=== PATIENT | female | born 1985 | race Caucasian/White ===

== ENCOUNTER 2017-04-05 15:04 | Inpatient (IN) | payer BC ==
[2017-04-05] MEDS ORDERED: Ondansetron 4 MG/2 ML SDV IVPUSH PRN ×2 (15:23→20:07)
[2017-04-05] MEDS ORDERED: Sodium Chloride 0.9% 10 ML Syringe FLUSH PRN (15:23)
[2017-04-05] MEDS ORDERED: Nalbuphine 20 MG/1 ML Amp IVPUSH PRN (15:23)
--- NOTE | 2017-04-05 15:29 | PCM.LDHP ---
L&D History of Present Illness - General Date of Service: 04/05/17 Admit Problem/Dx: Patient Status Order with Admit Dx/Problem 04/05/17 15:24 Patient Status [ADT] Routine Admission Diagnosis/Problem Admission Diagnosis/Problem Normal Source of Information: Patient History Limitations: Reports: No Limitations - History of Present Illness Introduction:: Patient is a 31 y/o at 37 2/7 wks who presents to L&D for delivery. Was seen in clinic today for routine appointment and described intense itching of her hands and feet which have been present for the last 3-4 days. Due to gestational age and delay in having bile acid testing return she was advised to present to L&D for delivery. Otherwise doing well. No other concerns. - Related Data Allergies/Adverse Reactions: Allergies Allergy/AdvReac Type Severity Reaction Status Date / Time amoxicillin Allergy Hives Verified 04/05/17 16:17 Penicillins Allergy Hives Verified 04/05/17 16:17 Home Medications: Home Meds Ondansetron [Zofran] 1 mg PO ASDIRECTED PRN 04/05/17 [History] Sertraline [Zoloft] 50 mg PO DAILY 04/05/17 [History] Past Medical History Genitourinary History: Reports: Other (See Below) (Horse shoe ) [employer] History: Reports: , Spontaneous : 5 Para: 3 (2 living children) LMP (Approximate): - Past Surgical History HEENT Surgical History: Reports: Adenoidectomy, Tonsillectomy Other HEENT Surgeries/Procedures: ear drums repaired due to having holes from the tubes Social & Family History - Family History Family Medical History: Noncontributory - Tobacco Use Smoking Status *Q: Former Smoker Years of Tobacco use: 10 Packs/Tins Daily: 0.5 Used Tobacco, but Quit: Yes Month Tobacco Last Used: Dec Second Hand Smoke Exposure: No - Alcohol Use Alcohol Use History: No Days Per Week of Alcohol Use: 0 - Recreational Drug Use Recreational Drug Use: No H&P Review of Systems - Review of Systems: Review Of Systems: See Below General: Reports: No Symptoms Pulmonary: Reports: No Symptoms Cardiovascular: Reports: No Symptoms Gastrointestinal: Reports: No Symptoms Genitourinary: Reports: No Symptoms Musculoskeletal: Reports: No Symptoms Neurological: Reports: No Symptoms L&D Exam - Exam Exam: See Below - OB Specific Contraction Intensity: Mild to Moderate Movement: Active Heart Tones: Present Heart Rate (FHR) Variability: Moderate (6-25 bmp) Presentation: Breech - House Score House Score Cervix Position: Posterior House Score Consistency: Soft House Score Effacement: 31-50% House Score Dilation: 1-2 cm House Score Infant's Station: -3 House Score Total: 4 - Exam General: Alert, Oriented, Cooperative Lungs: Clear to Auscultation, Normal Respiratory Effort Cardiovascular: Regular Rate, Regular Rhythm GI/Abdominal Exam: Soft, Non-Tender Genitourinary: Normal external exam Extremities: Normal Inspection Skin: Warm, Dry, Intact - Patient Data Result Diagrams: 04/05/17 15:35 04/05/17 15:35 - Problem List (1) Bicornate uterus SNOMED Code(s): 18047715 ICD Code: Q51.3 - BICORNATE UTERUS Status: Acute Current Visit: Yes (2) Pruritus of palm SNOMED Code(s): 032441563 ICD Code: L29.8 - OTHER PRURITUS Status: Acute Current Visit: Yes (3) Solar pruritus SNOMED Code(s): 098898021 ICD Code: L29.9 - PRURITUS, UNSPECIFIED Status: Acute Current Visit: Yes (4) 37 weeks gestation of SNOMED Code(s): 43993554 ICD Code: Z3A.37 - 37 WEEKS GESTATION OF Status: Acute Current Visit: Yes (5) Breech presentation SNOMED Code(s): 4071031 ICD Code: O32.1XX0 - MATERNAL CARE FOR BREECH PRESENTATION, UNSP Status: Acute Current Visit: Yes Qualifiers: Fetus number: single or unspecified fetus Qualified Code(s): O32.1XX0 - Maternal care for breech presentation, not applicable or unspecified Problem List Initiated/Reviewed/Updated: Yes Orders Last 24hrs: Active Orders 24 hr Category Date Time Status Patient Status [ADT] Routine ADT 04/05/17 15:24 Ordered Activity as Tolerated [RC] PFP Care 04/05/17 15:24 Ordered Communication Order [RC] ASDIRECTED Care 04/05/17 15:24 Ordered Communication Order [RC] ASDIRECTED Care 04/05/17 15:24 Ordered Communication Order [RC] ASDIRECTED Care 04/05/17 15:24 Ordered Heart Tones [RC] ASDIRECTED Care 04/05/17 15:24 Ordered Notify Provider [RC] ASDIRECTED Care 04/05/17 15:24 Ordered Notify Provider [RC] PFP Care 04/05/17 15:24 Ordered Notify Provider [RC] PRN Care 04/05/17 15:24 Ordered Peripheral IV Care [RC] . DIRECTED Care 04/05/17 15:24 Ordered Vaginal Exam [RC] ASDIRECTED Care 04/05/17 15:24 Ordered Vital Signs [RC] PER UNIT ROUTINE Care 04/05/17 15:24 Ordered Regular Diet [DIET] Diet 04/05/17 Dinner Ordered ALANINE AMINOTRANSFERASE,ALT [CHEM] Routine Lab 04/05/17 15:23 Ordered ASPARTATE AMNIOTRANSFERASE,AST [CHEM] Routine Lab 04/05/17 15:23 Ordered BILE ACIDS, FRACTIONATED [REF] Routine Lab 04/05/17 15:23 Ordered CBC W/O DIFF,HEMOGRAM [HEME] Routine Lab 04/05/17 15:23 Ordered CREATININE W/GFR [CHEM] Routine Lab 04/05/17 15:23 Ordered TYPE AND SCREEN [BBK] Routine Lab 04/05/17 15:23 Ordered UA W/O MICROSCOPIC [URIN] Routine Lab 04/05/17 15:23 Uncollected Lactated Ringers [Ringers, Lactated] 1,000 ml Med 04/05/17 15:30 Ordered IV ASDIRECTED Nalbuphine [Nubain] Med 04/05/17 15:23 Ordered 10 mg IVPUSH Q2H PRN Ondansetron [Zofran] Med 04/05/17 15:23 Ordered 4 mg IVPUSH Q4H PRN Oxytocin/Lactated Ringers [Pitocin in LR 10 Units/1,000 Med 04/05/17 15:30 Ordered ML] 10 unit in 1,000 ml IV .CONTINUOUS Oxytocin/Lactated Ringers [Pitocin in LR 10 Units/1,000 Med 04/05/17 15:30 Ordered ML] 10 unit in 1,000 ml IV TITRATE Sodium Chloride 0.9% [Saline Flush] Med 04/05/17 15:23 Ordered 10 ml FLUSH ASDIRECTED PRN Electronic Heart Tones Ext w TOCO [WOMSER] Oth 04/05/17 15:24 Ordered Routine Electronic Heart Tones Internal [WOMSER] Per Unit Oth 04/05/17 15:24 Ordered Routine Peripheral IV Insertion Adult [OM.PC] Routine Oth 04/05/17 15:24 Ordered Resuscitation Status Routine Resus Stat 04/05/17 15:23 Ordered Medication Orders Lactated Ringer's (Ringers, Lactated) 1,000 mls @ 40 mls/hr IV ASDIRECTED KEVYN Oxytocin/Lactated Ringer's (Pitocin In Lr 10 Units/1,000 Ml) 10 unit in 1,000 mls @ 500 mls/hr IV .CONTINUOUS KEVYN Oxytocin/Lactated Ringer's (Pitocin In Lr 10 Units/1,000 Ml) 10 unit in 1,000 mls @ 12 mls/hr IV TITRATE KEVYN; 2 MUNITS/MIN PRN Reason: Protocol Nalbuphine HCl (Nubain) 10 mg IVPUSH Q2H PRN PRN Reason: Pain (moderate 4-6) Ondansetron HCl (Zofran) 4 mg IVPUSH Q4H PRN PRN Reason: Nausea/Vomiting Sodium Chloride (Saline Flush) 10 ml FLUSH ASDIRECTED PRN PRN Reason: Keep Vein Open Assessment/Plan Comment:: 31 y/o at 37 2/7 wks presents for due to concerns for possible cholestasis of given complaints of itching of the hands/feet. Will order bile acids, but they take >7 days to return. Feel it is prudent to move on to delivery in the mean time due to risk of IUFD. She agrees. She also had a mild range BP in clinic. Has had several mild range values in L&D as well. Labs done and normal. Likely gestational HTN. Will continue to monitor closely afterwards. Lastly, baby found to be breech. Discussed trial of ECV which is not thought to likely be successful given bicornuate, but patient would like trial. Done, see report below, but without movement of baby. She is willing to proceed with PLTCS. Consent signed. OR crew and pediatrics notified. Jennifer Mendoza MD ECV Trial: The risks, benefits, indications, potential complications, and alternatives were explained to the patient and informed consent obtained. Patient was placed in the supine position. Ultrasound was used to confirm breech presentation and appropriate [place]. Hands were placed on the patient's abdomen. The breech was elevated out of the pelvis while clockwise traction was applied to the head. Due to patient discomfort and no movement of baby attempt at ECV abandoned after approximately 3 tries.
[2017-04-05] MEDS ORDERED: Oxytocin/Lactated Ringers 10 UNIT/1,000 ML BAG IV SCH ×2 (15:30)
[2017-04-05] MEDS ORDERED: Metoclopramide 10 MG/2 ML SDV IVPUSH ONE (17:26)
[2017-04-05] MEDS ORDERED: ceFAZolin 2 GM in Premix Bag 1 BAG IV ONE (17:26)
[2017-04-05] MEDS ORDERED: Citric Acid/Sodium Citrate Solution 30 ML Cup PO ONE (17:26)
--- NOTE | 2017-04-05 17:44 | PCM.OPNOTE ---
- General Post-Op/Procedure Note Date of Surgery/Procedure: 04/05/17 Operative Procedure(s): Primary low transverse Findings: * Baby girl in a breech presentation with weight of 7 lbs 3 oz and APGARS of 1 & 9 * Grossly normal appearance of the uterus, not able to appreciate any changes to suggest bicornuate morphology as patient had previously been told * Normal appearance of the fallopian tubes and ovaries Pre Op Diagnosis: 37 weeks gestation. Gestational HTN. Itching of hands/feet - concerns for cholestasis of , labs pending. Breech presentation Post-Op Diagnosis: Same Anesthesia Technique: Spinal Primary Surgeon: Jennifer Mendoza Secondary Surgeon: Sunitha Bell Anesthesia Provider: Ld Hollingsworth Reason Concession Cashier Was Necessary: Retraction, aid in procedure, etc. Pathology: Cord blood collected. Placenta discarded. Output, Urine Amount: 100 EBL in mLs: 800 Complications: None Condition: Good Free Text/Narrative:: The risks, benefits, indications, potential complications, and alternatives were explained to the patient and informed consent obtained. After induction of anesthesia, the patient was placed in a supine position and then draped and prepped in the usual sterile manner. A Pfannenstiel incision was made and carried down through the subcutaneous tissue to the fascia. Fascial incision was made and extended transversely. The fascia was from the underlying rectus tissue superiorly and inferiorly. The peritoneum was identified and entered. Peritoneal incision was extended longitudinally. The utero-vesical peritoneal reflection was incised transversely and the bladder flap was bluntly freed from the lower uterine segment. A low transverse uterine incision was made sharply with a scalpel and extended bluntly in a cephalocaudad direction. When a hand was placed into the uterus the breech was not easily encountered, was off center and not engaged. Decision made to proceed with delivery of feet. This was difficult as feet were at same level as head. Eventually both feet were able to be brought through the hysterotomy and a baby girl was delivered with traditional breech maneuvers. APGARS as above. After the umbilical cord was clamped and cut cord blood was obtained for evaluation. The placenta was removed intact and appeared normal. The uterus was exteriorized and cleared of clots. The uterine outline, tubes and ovaries appeared normal. The uterine incision was closed with running locked sutures of 0 Vicryl. Hemostasis was obtained with an imbicating layer of 0 vicryl. The uterus was then placed back into the abdomen. The infracolic gutters were cleared of blood clots. The fascia was then reapproximated with running sutures of 0 Vicryl. The sucutaneous tissue was irrigated with sterile warm normal saline, hemostasis obtained with cautery. This layer was also closed with a running 0 vicryl. The skin was reapproximated with running Subcuticular 4-0 monocryl sutures. Instrument, sponge, and needle counts were correct prior the abdominal closure and at the conclusion of the case.
[2017-04-05] MEDS: Lactated Ringers 1,000 ML IV SCH ×2 (17:55→18:24)
--- NOTE | 2017-04-05 18:15 | PCM.PREANE ---
Preanesthetic Assessment - Procedure Proposed Procedure: Primary C Section - Anesthesia/Transfusion/Family Hx Anesthesia History: Prior Anesthesia Without Reaction Family History of Anesthesia Reaction: No Transfusion History: No Prior Transfusion(s) Intubation History: Unknown - Review of Systems General: No Symptoms Pulmonary: No Symptoms Cardiovascular: No Symptoms Gastrointestinal: No Symptoms Neurological: No Symptoms Other: Reports: Depression, Anxiety - Physical Assessment NPO Status Date: 04/05/17 NPO Status Time: 13:00 Pulse: 89 O2 Sat by Pulse Oximetry: 100 Respiratory Rate: 16 Blood Pressure: 139/92 Vital Signs: Last Vital Signs Temp 36.6 C 04/05/17 15:24 Pulse 89 04/05/17 16:00 Resp 16 04/05/17 15:24 BP 139/92 H 04/05/17 16:00 Pulse Ox 100 04/05/17 15:24 Height: 1.57 m Weight: 88.269 kg ASA Class: 2 Mental Status: Alert & Oriented x3 Airway Class: Mallampati = 1 Dentition: Reports: Missing Tooth/Teeth (upper left tooth missing, bottom right molar missing ) Thyro-Mental Finger Breadths: 3 Mouth Opening Finger Breadths: 3 ROM/Head Extension: Full Lungs: Clear to Auscultation, Normal Respiratory Effort Cardiovascular: Regular Rate, Regular Rhythm - Lab Values: Laboratory Last Values WBC 9.95 K/mm3 (3.98-10.04) 04/05/17 15:35 RBC 4.31 M/mm3 (3.98-5.22) 04/05/17 15:35 Hgb 12.6 gm/L (11.2-15.7) 04/05/17 15:35 Hct 38.0 % (34.1-44.9) 04/05/17 15:35 MCV 88.2 fl (79.4-94.8) 04/05/17 15:35 MCH 29.2 pg (25.6-32.2) 04/05/17 15:35 MCHC 33.2 g/dl (32.2-35.5) 04/05/17 15:35 RDW Std Deviation 41.5 fL (36.4-46.3) 04/05/17 15:35 Plt Count 354 K/mm3 (182-369) 04/05/17 15:35 MPV 9.1 fl (9.4-12.3) L 04/05/17 15:35 Creatinine 0.9 mg/dL (0.55-1.02) 04/05/17 15:35 Est Cr Clr Drug Dosing TNP 04/05/17 15:35 Estimated GFR (MDRD) > 60 mL/min (>60) 04/05/17 15:35 AST 34 U/L (15-37) 04/05/17 15:35 ALT 42 U/L (14-59) 04/05/17 15:35 Blood Type O POSITIVE 04/05/17 15:35 Gel Antibody Screen Negative 04/05/17 15:35 - Allergies Allergies/Adverse Reactions: Allergies Allergy/AdvReac Type Severity Reaction Status Date / Time amoxicillin Allergy Hives Verified 04/05/17 16:17 Penicillins Allergy Hives Verified 04/05/17 16:17 - Blood Blood Available: No Product(s) Available: None - Anesthesia Plan Pre-Op Medication Ordered: None - Acknowledgements Anesthesia Type Planned: Spinal (with duramorph) Pt an Appropriate Candidate for the Planned Anesthesia: Yes Alternatives and Risks of Anesthesia Discussed w Pt/Guardian: Yes Pt/Guardian Understands and Agrees with Anesthesia Plan: Yes PreAnesthesia Questionnaire - Past Health History Medical/Surgical History: Denies Medical/Surgical History Genitourinary History: Reports: Other (See Below) (Horse shoe ) Other Genitourinary History: "fused kidneys" 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: , Spontaneous Psychiatric History: Reports: Depression - Past Surgical History HEENT Surgical History: Reports: Adenoidectomy, Tonsillectomy Other HEENT Surgeries/Procedures: ear drums repaired due to having holes from the tubes - SUBSTANCE USE Smoking Status *Q: Former Smoker Tobacco Use Within Last Twelve Months: No Second Hand Smoke Exposure: No Days Per Week of Alcohol Use: 0 Recreational Drug Use History: No - HOME MEDS Home Medications: Home Meds Ondansetron [Zofran] 1 mg PO ASDIRECTED PRN 04/05/17 [History] Sertraline [Zoloft] 50 mg PO DAILY 04/05/17 [History] - CURRENT (IN HOUSE) MEDS Current Meds: Current Medications Lactated Ringer's (Ringers, Lactated) 1,000 mls @ 40 mls/hr IV ASDIRECTED KEVYN Oxytocin/Lactated Ringer's (Pitocin In Lr 10 Units/1,000 Ml) 10 unit in 1,000 mls @ 500 mls/hr IV .CONTINUOUS KEVYN Oxytocin/Lactated Ringer's (Pitocin In Lr 10 Units/1,000 Ml) 10 unit in 1,000 mls @ 12 mls/hr IV TITRATE KEVYN; 2 MUNITS/MIN PRN Reason: Protocol Nalbuphine HCl (Nubain) 10 mg IVPUSH Q2H PRN PRN Reason: Pain (moderate 4-6) Ondansetron HCl (Zofran) 4 mg IVPUSH Q4H PRN PRN Reason: Nausea/Vomiting Sodium Chloride (Saline Flush) 10 ml FLUSH ASDIRECTED PRN PRN Reason: Keep Vein Open Discontinued Medications Citric Acid/Sodium Citrate (Bicitra Solution) 30 ml PO ONETIME ONE Stop: 04/05/17 17:27 Cefazolin Sodium/Dextrose 2 gm (/ Premix) 50 mls @ 100 mls/hr IV ONETIME ONE Stop: 04/05/17 17:55 Metoclopramide HCl (Reglan) 10 mg IVPUSH ONETIME ONE Stop: 04/05/17 17:27
[2017-04-05] MEDS ORDERED: Morphine PF 10 MG/10 ML SDV ONE (18:51)
[2017-04-05] MEDS ORDERED: ceFAZolin 1 GM Vial ONE (18:52)
[2017-04-05] MEDS ORDERED: Oxytocin 10 Units/1 ML SDV ONE (18:52)
[2017-04-05] MEDS ORDERED: Ketorolac 30 MG/ML SDV ONE (18:56)
[2017-04-05] MEDS ORDERED: Ondansetron 4 MG/2 ML SDV ONE (19:55)
[2017-04-05] MEDS ORDERED: Phenylephrine 1% 10 MG/ML SDV ONE (19:55)
[2017-04-05] MEDS ORDERED: Meperidine PF 50 MG/ML Syringe ONE (19:58)
--- NOTE | 2017-04-05 20:06 | PCM.POSTAN ---
POST ANESTHESIA ASSESSMENT - MENTAL STATUS Mental Status: Alert, Oriented - VITAL SIGNS Pulse Rate: 86 SaO2: 99 Resp Rate: 14 Blood Pressure: 102/67 Temperature: 37.5 C - RESPIRATORY Respiratory Status: Respiratory Rate WNL, Airway Patent, O2 Saturation Stable - CARDIOVASCULAR CV Status: Pulse Rate WNL, Blood Pressure Stable - GASTROINTESTINAL GI Status: No Symptoms - PAIN Pain Score: 0 - POST OP HYDRATION Hydration Status: Adequate & Stable
[2017-04-05] MEDS ORDERED: Meperidine PF 50 MG/ML Syringe IVPUSH PRN (20:07)
[2017-04-05] MEDS ORDERED: fentaNYL 100 MCG/2 ML SDV IVPUSH PRN (20:07)
[2017-04-05] MEDS ORDERED: diphenhydrAMINE 50 MG/ML SDV IVPUSH PRN ×2 (20:07→20:50)
[2017-04-05] MEDS ORDERED: Ondansetron 4 MG/2 ML SDV IV PRN (20:50)
[2017-04-05] MEDS ORDERED: Ibuprofen 600 MG Tab PO PRN (20:50)
[2017-04-05] MEDS ORDERED: Dextrose 5%-Lactated Ringers 1,000 ML IV SCH (20:50)
[2017-04-05] MEDS ORDERED: Lanolin 100% Cream 7 GM Tube TOP PRN (20:50)
[2017-04-05] MEDS ORDERED: Docusate Sodium 100 MG Cap PO PRN (20:50)
[2017-04-05] MEDS: Acetaminophen/oxyCODONE 325-5 MG Tab PO PRN (23:31)
[2017-04-06] MEDS: Ketorolac 30 MG/ML SDV IVPUSH SCH ×3 (01:34→13:40)
[2017-04-06] MEDS ORDERED: diphenhydrAMINE 50 MG/ML SDV IVPUSH ONE (03:26)
--- NOTE | 2017-04-06 07:01 | PCM.PNPP ---
- General Info Date of Service: 04/06/17 Functional Status: Reports: Pain Controlled, Tolerating Diet, Ambulating - Review of Systems General: Reports: No Symptoms Pulmonary: Reports: No Symptoms Cardiovascular: Reports: No Symptoms Gastrointestinal: Reports: No Symptoms Genitourinary: Reports: No Symptoms Musculoskeletal: Reports: No Symptoms - Patient Data Vital Signs - Most Recent: Last Vital Signs Temp 36.4 C 04/06/17 04:59 Pulse 82 04/06/17 04:59 Resp 16 04/06/17 04:59 BP 115/60 04/06/17 04:59 Pulse Ox 99 04/06/17 06:00 Weight - Most Recent: 88.269 kg I&O - Last 24 Hours: Intake & Output 04/05/17 04/06/17 04/06/17 22:59 06:59 14:59 Intake Total 3000 Output Total 200 Balance 2800 Lab Results - Last 24 Hours: Laboratory Results - last 24 hr 04/05/17 04/05/17 04/05/17 Range/Units 15:35 15:35 15:35 WBC 9.95 (3.98-10.04) K/mm3 RBC 4.31 (3.98-5.22) M/mm3 Hgb 12.6 (11.2-15.7) gm/L Hct 38.0 (34.1-44.9) % MCV 88.2 (79.4-94.8) fl MCH 29.2 (25.6-32.2) pg MCHC 33.2 (32.2-35.5) g/dl RDW Std Deviation 41.5 (36.4-46.3) fL Plt Count 354 (182-369) K/mm3 MPV 9.1 L (9.4-12.3) fl Creatinine 0.9 (0.55-1.02) mg/dL Est Cr Clr Drug Dosing TNP Estimated GFR (MDRD) > 60 (>60) mL/min AST 34 (15-37) U/L ALT 42 (14-59) U/L Blood Type O POSITIVE Gel Antibody Screen Negative 04/06/17 Range/Units 06:10 WBC 10.18 H (3.98-10.04) K/mm3 RBC 3.15 L (3.98-5.22) M/mm3 Hgb 9.2 L (11.2-15.7) gm/L Hct 28.4 L (34.1-44.9) % MCV 90.2 (79.4-94.8) fl MCH 29.2 (25.6-32.2) pg MCHC 32.4 (32.2-35.5) g/dl RDW Std Deviation 41.0 (36.4-46.3) fL Plt Count 277 (182-369) K/mm3 MPV 9.3 L (9.4-12.3) fl Creatinine (0.55-1.02) mg/dL Est Cr Clr Drug Dosing Estimated GFR (MDRD) (>60) mL/min AST (15-37) U/L ALT (14-59) U/L Blood Type Gel Antibody Screen Med Orders - Current: Current Medications Diphenhydramine HCl (Benadryl) 25 mg IVPUSH Q6H PRN PRN Reason: Pruritis Last Admin: 04/06/17 02:08 Dose: 25 mg Diphenhydramine HCl (Benadryl) 25 mg IVPUSH Q6H PRN PRN Reason: Itching or Nausea Docusate Sodium (Colace) 100 mg PO Q12H PRN PRN Reason: Constipation Emollient Ointment (Lansinoh Hpa) 0 gm TOP ASDIRECTED PRN PRN Reason: Sore Nipples Fentanyl (Sublimaze) 50 mcg IVPUSH Q5M PRN PRN Reason: Pain Ibuprofen (Motrin) 600 mg PO Q6H PRN PRN Reason: mild pain or fever Ketorolac Tromethamine (Toradol) 30 mg IVPUSH Q6H KEVYN Stop: 04/06/17 13:46 Last Admin: 04/06/17 01:34 Dose: 30 mg Meperidine HCl (Demerol) 12.5 mg IVPUSH ONETIME PRN PRN Reason: Shivering Ondansetron HCl (Zofran) 4 mg IVPUSH ONETIME PRN PRN Reason: Nausea/Vomiting Ondansetron HCl (Zofran) 4 mg IV Q8H PRN PRN Reason: Nausea/Vomiting Oxycodone/Acetaminophen (Percocet 325-5 Mg) 2 tab PO Q4H PRN PRN Reason: Pain (moderate 4-6) Last Admin: 04/05/17 23:31 Dose: 2 tab Sertraline HCl (Zoloft) 50 mg PO DAILY KEVYN Discontinued Medications Cefazolin Sodium (Ancef) Confirm Administered Dose 2 gm .ROUTE .STK-MED ONE Stop: 04/05/17 18:53 Citric Acid/Sodium Citrate (Bicitra Solution) 30 ml PO ONETIME ONE Stop: 04/05/17 17:27 Last Admin: 04/05/17 18:26 Dose: 30 ml Diphenhydramine HCl (Benadryl) 25 mg IVPUSH ONETIME ONE Stop: 04/06/17 03:27 Last Admin: 04/06/17 03:54 Dose: 25 mg Lactated Ringer's (Ringers, Lactated) 1,000 mls @ 40 mls/hr IV ASDIRECTED KEVYN Last Admin: 04/05/17 18:24 Dose: 999 mls/hr Oxytocin/Lactated Ringer's (Pitocin In Lr 10 Units/1,000 Ml) 10 unit in 1,000 mls @ 500 mls/hr IV .CONTINUOUS KEVYN Last Admin: 04/05/17 19:19 Dose: 500 mls/hr Oxytocin/Lactated Ringer's (Pitocin In Lr 10 Units/1,000 Ml) 10 unit in 1,000 mls @ 12 mls/hr IV TITRATE KEVYN; 2 MUNITS/MIN PRN Reason: Protocol Cefazolin Sodium/Dextrose 2 gm (/ Premix) 50 mls @ 100 mls/hr IV ONETIME ONE Stop: 04/05/17 17:55 Dextrose/Lactated Ringer's (Dextrose 5%-Lactated Ringers) 1,000 mls @ 125 mls/ hr IV ASDIRECTED KEVYN Stop: 04/06/17 04:49 Last Admin: 04/05/17 21:19 Dose: 125 mls/hr Ketorolac Tromethamine (Toradol) Confirm Administered Dose 30 mg .ROUTE .STK- MED ONE Stop: 04/05/17 18:57 Meperidine HCl (Demerol) Confirm Administered Dose 50 mg .ROUTE .STK-MED ONE Stop: 04/05/17 19:59 Metoclopramide HCl (Reglan) 10 mg IVPUSH ONETIME ONE Stop: 04/05/17 17:27 Last Admin: 04/05/17 18:25 Dose: 10 mg Morphine Sulfate (Duramorph Pf) Confirm Administered Dose 10 mg .ROUTE .STK-MED ONE Stop: 04/05/17 18:52 Nalbuphine HCl (Nubain) 10 mg IVPUSH Q2H PRN PRN Reason: Pain (moderate 4-6) Ondansetron HCl (Zofran) 4 mg IVPUSH Q4H PRN PRN Reason: Nausea/Vomiting Ondansetron HCl (Zofran) Confirm Administered Dose 4 mg .ROUTE .STK-MED ONE Stop: 04/05/17 19:56 Oxytocin (Pitocin) Confirm Administered Dose 10 unit .ROUTE .STK-MED ONE Stop: 04/05/17 18:53 Phenylephrine HCl (Panfilo-Synephrine) Confirm Administered Dose 10 mg .ROUTE .STK- MED ONE Stop: 04/05/17 19:56 Sodium Chloride (Saline Flush) 10 ml FLUSH ASDIRECTED PRN PRN Reason: Keep Vein Open - Infant Interaction Infant Disposition, : in Room with Family Interaction: Holding Infant Infant Feeding: Breastfed Infant; Nursed Well Support Person: - Recovery Exam Fundal Tone: Firm Fundal Level: At Umbilicus Fundal Placement: Midline Lochia Amount: Small Lochia Color: Rubra/Red Perineum Description: Intact, Minimal Bruising/Swelling Bladder Status: Indwelling Catheter in Place Urinary Elimination: Indwelling Catheter - Exam General: Alert, Oriented, Cooperative Lungs: Clear to Auscultation, Normal Respiratory Effort Cardiovascular: Regular Rate, Regular Rhythm GI/Abdominal Exam: Soft, Tender (appropriate post op) Extremities: Normal Inspection Skin: Warm, Dry, Intact Wound/Incisions: Dressing Dry and Intact - Problem List & Annotations (1) Bicornate uterus SNOMED Code(s): 80205521 Code(s): Q51.3 - BICORNATE UTERUS Status: Acute Current Visit: Yes (2) Pruritus of palm SNOMED Code(s): 510117785 Code(s): L29.8 - OTHER PRURITUS Status: Acute Current Visit: Yes (3) Solar pruritus SNOMED Code(s): 600365194 Code(s): L29.9 - PRURITUS, UNSPECIFIED Status: Acute Current Visit: Yes (4) 37 weeks gestation of SNOMED Code(s): 73805587 Code(s): Z3A.37 - 37 WEEKS GESTATION OF Status: Acute Current Visit: Yes (5) Breech presentation SNOMED Code(s): 9076011 Code(s): O32.1XX0 - MATERNAL CARE FOR BREECH PRESENTATION, UNSP Status: Acute Current Visit: Yes Qualifiers: Fetus number: single or unspecified fetus Qualified Code(s): O32.1XX0 - Maternal care for breech presentation, not applicable or unspecified (6) Gestational hypertension SNOMED Code(s): 21673377 Code(s): O13.9 - GESTATIONAL HTN W/O SIGNIFICANT PROTEINURIA, UNSP TRIMESTER Status: Acute Current Visit: Yes Qualifiers: Trimester: third trimester Qualified Code(s): O13.3 - Gestational [ -induced] hypertension without significant proteinuria, third trimester - Problem List Review Problem List Initiated/Reviewed/Updated: Yes - My Orders Last 24 Hours: My Active Orders 04/05/17 15:23 Resuscitation Status Routine 04/05/17 15:35 BILE ACIDS, FRACTIONATED [REF] Routine 04/05/17 20:50 Activity as Tolerated [RC] .Routine Antiembolic Devices [RC] .PRN Communication Order [RC] PER UNIT ROUTINE Intake and Output [RC] .PRN Notify Provider Intake and Out [RC] ASDIRECTED RT Incentive Spirometry [RC] Q2HWA Vital Signs [RC] 04,12,20 Acetaminophen/oxyCODONE [Percocet 325-5 MG] 2 tab PO Q4H PRN Docusate Sodium [Colace] 100 mg PO Q12H PRN Ibuprofen [Motrin] 600 mg PO Q6H PRN Lanolin [Lansinoh HPA] See Dose Instructions TOP ASDIRECTED PRN Ondansetron [Zofran] 4 mg IV Q8H PRN diphenhydrAMINE [Benadryl] 25 mg IVPUSH Q6H PRN Assess Lochia [WOMSER] Per Unit Routine Assess Uterine Involution [WOMSER] Per Unit Routine Breast Pump [WOMSER] Per Unit Routine Heat Therapy [OM.PC] Per Unit Routine Sequential Compression Device [OM.PC] Per Unit Routine 04/05/17 Breakfast Regular Diet [DIET] 04/06/17 01:45 Ketorolac [Toradol] 30 mg IVPUSH Q6H 04/06/17 09:00 Sertraline [Zoloft] 50 mg PO DAILY 04/06/17 20:06 Urinary Catheter Removal [RC] Per Unit Routine - Assessment Assessment:: 31 y/o G5 now [id number] POD#1 from PLTCS 37 2/ wks - Plan Plan:: Post op * Routine cares * BP's appropriate post op, continue to monitor * Await bile acids * Encourage breast feeding * Discharge home in 1-2 days
--- NOTE | 2017-04-06 07:10 | PCM48HPAN ---
Post Anesthesia Note - EVALUATION WITHIN 48HRS OF ANESTHETIC Vital Signs in Normal Range: Yes Patient Participated in Evaluation: Yes Respiratory Function Stable: Yes Airway Patent: Yes Cardiovascular Function Stable: Yes Hydration Status Stable: Yes Pain Control Satisfactory: Yes Nausea and Vomiting Control Satisfactory: Yes Mental Status Recovered: Yes - COMMENTS/OBSERVATIONS Free Text/Narrative:: Some pruitis noted from astromorph but resolved and improved with benadryl.
[2017-04-06] MEDS: Sertraline 50 MG Tab PO SCH (11:00)
[2017-04-06] MEDS: Acetaminophen/oxyCODONE 325-5 MG Tab PO PRN ×2 (16:14→20:35)
[2017-04-07] MEDS: Acetaminophen/oxyCODONE 325-5 MG Tab PO PRN ×4 (00:58→15:49)
--- NOTE | 2017-04-07 06:42 | PCM.DCSUM1 ---
Discharge Summary - Discharge Data Discharge Date: 04/07/17 Discharge Disposition: Home, Self-Care 01 Condition: Good - Discharge Diagnosis/Problem(s) (1) Bicornate uterus SNOMED Code(s): 58184949 ICD Code: Q51.3 - BICORNATE UTERUS Status: Acute Current Visit: Yes (2) Pruritus of palm SNOMED Code(s): 195662430 ICD Code: L29.8 - OTHER PRURITUS Status: Acute Current Visit: Yes (3) Solar pruritus SNOMED Code(s): 699493760 ICD Code: L29.9 - PRURITUS, UNSPECIFIED Status: Acute Current Visit: Yes (4) 37 weeks gestation of SNOMED Code(s): 42772003 ICD Code: Z3A.37 - 37 WEEKS GESTATION OF Status: Acute Current Visit: Yes (5) Breech presentation SNOMED Code(s): 9122678 ICD Code: O32.1XX0 - MATERNAL CARE FOR BREECH PRESENTATION, UNSP Status: Acute Current Visit: Yes Qualifiers: Fetus number: single or unspecified fetus Qualified Code(s): O32.1XX0 - Maternal care for breech presentation, not applicable or unspecified (6) Gestational hypertension SNOMED Code(s): 74649516 ICD Code: O13.9 - GESTATIONAL HTN W/O SIGNIFICANT PROTEINURIA, UNSP TRIMESTER Status: Acute Current Visit: Yes Qualifiers: Trimester: third trimester Qualified Code(s): O13.3 - Gestational [ -induced] hypertension without significant proteinuria, third trimester (7) S/P primary low transverse SNOMED Code(s): 697899202, 009417959, 042507290 ICD Code: Z98.891 - HISTORY OF UTERINE SCAR FROM PREVIOUS SURGERY Status: Acute Current Visit: Yes - Patient Summary/Data Operative Procedure(s) Performed: Primary low transverse Complications: None Consults: None Recommended Follow-up Testing/Procedures: Follow up in 1-2 weeks for incision check Hospital Course: 31 y/o at 37 2/7 wks presented to L&D from clinic for findings of elevated BP and also complaints of itching of hands/feet. Concerns were for gestational HTN and also possible cholestasis. Decision made to proceed towards delivery. Baby was, however, noted to be breech and so delivery was via PLTCS. See operative note for full details. she did well and was discharged home on POD#2. - Patient Instructions Diet: Regular Diet as Tolerated Activity: No Lifting Over 10 Pounds Activity, Other: Pelvic Rest for 6 weeks Driving: Do Not Drive (While taking narcotics ) Showering/Bathing: May Shower, No Tub Bathing/Swimming Wound/Incision Care: Keep Operative Site/Wound Site Clean and Dry Notify Provider of: Fever, Increased Pain, Swelling and Redness, Drainage, Nausea and/or Vomiting - Discharge Plan Prescriptions/Med Rec: Acetaminophen/oxyCODONE [Percocet 325-5 MG] 2 tab PO Q4H PRN #30 tablet PRN Reason: Pain Home Medications: Home Meds Sertraline [Zoloft] 50 mg PO DAILY 04/05/17 [History] Acetaminophen/oxyCODONE [Percocet 325-5 MG] 2 tab PO Q4H PRN #30 tablet [Rx] Docusate Sodium [Colace] 100 mg PO Q12H PRN cap 04/06/17 [Rx] Ibuprofen [IJD: Ibuprofen] 600 mg PO Q6H PRN tablet 04/06/17 [Rx] Referrals: Jennifer Mendoza MD [Primary Care Provider] - (1-2 weeks for incision check ) - Discharge Summary/Plan Comment DC Time >30 min.: No - Patient Data Vitals - Most Recent: Last Vital Signs Temp 36.0 C 04/07/17 03:47 Pulse 99 04/06/17 20:20 Resp 16 04/07/17 03:47 BP 110/72 04/07/17 03:28 Pulse Ox 95 04/06/17 20:20 Weight - Most Recent: 88.269 kg I&O - Last 24 hours: Intake & Output 04/06/17 04/06/17 04/07/17 14:59 22:59 06:59 Intake Total 0 120 Output Total 1750 Balance -1750 120 Lab Results - Last 24 hrs: Laboratory Results - last 24 hr 04/06/17 Range/Units 06:10 WBC 10.18 H (3.98-10.04) K/mm3 RBC 3.15 L (3.98-5.22) M/mm3 Hgb 9.2 L (11.2-15.7) gm/L Hct 28.4 L (34.1-44.9) % MCV 90.2 (79.4-94.8) fl MCH 29.2 (25.6-32.2) pg MCHC 32.4 (32.2-35.5) g/dl RDW Std Deviation 41.0 (36.4-46.3) fL Plt Count 277 (182-369) K/mm3 MPV 9.3 L (9.4-12.3) fl Med Orders - Current: Current Medications Diphenhydramine HCl (Benadryl) 25 mg IVPUSH Q6H PRN PRN Reason: Pruritis Last Admin: 04/06/17 02:08 Dose: 25 mg Diphenhydramine HCl (Benadryl) 25 mg IVPUSH Q6H PRN PRN Reason: Itching or Nausea Docusate Sodium (Colace) 100 mg PO Q12H PRN PRN Reason: Constipation Last Admin: 04/06/17 20:57 Dose: 100 mg Emollient Ointment (Lansinoh Hpa) 0 gm TOP ASDIRECTED PRN PRN Reason: Sore Nipples Last Admin: 04/06/17 08:04 Dose: 1 cm Fentanyl (Sublimaze) 50 mcg IVPUSH Q5M PRN PRN Reason: Pain Ibuprofen (Motrin) 600 mg PO Q6H PRN PRN Reason: mild pain or fever Meperidine HCl (Demerol) 12.5 mg IVPUSH ONETIME PRN PRN Reason: Shivering Ondansetron HCl (Zofran) 4 mg IVPUSH ONETIME PRN PRN Reason: Nausea/Vomiting Ondansetron HCl (Zofran) 4 mg IV Q8H PRN PRN Reason: Nausea/Vomiting Oxycodone/Acetaminophen (Percocet 325-5 Mg) 2 tab PO Q4H PRN PRN Reason: Pain (moderate 4-6) Last Admin: 04/07/17 05:47 Dose: 2 tab Sertraline HCl (Zoloft) 50 mg PO DAILY KEVYN Last Admin: 04/06/17 11:00 Dose: 50 mg Discontinued Medications Cefazolin Sodium (Ancef) Confirm Administered Dose 2 gm .ROUTE .STK-MED ONE Stop: 04/05/17 18:53 Citric Acid/Sodium Citrate (Bicitra Solution) 30 ml PO ONETIME ONE Stop: 04/05/17 17:27 Last Admin: 04/05/17 18:26 Dose: 30 ml Diphenhydramine HCl (Benadryl) 25 mg IVPUSH ONETIME ONE Stop: 04/06/17 03:27 Last Admin: 04/06/17 03:54 Dose: 25 mg Lactated Ringer's (Ringers, Lactated) 1,000 mls @ 40 mls/hr IV ASDIRECTED KEVYN Last Admin: 04/05/17 18:24 Dose: 999 mls/hr Oxytocin/Lactated Ringer's (Pitocin In Lr 10 Units/1,000 Ml) 10 unit in 1,000 mls @ 500 mls/hr IV .CONTINUOUS KEVYN Last Admin: 04/05/17 19:19 Dose: 500 mls/hr Oxytocin/Lactated Ringer's (Pitocin In Lr 10 Units/1,000 Ml) 10 unit in 1,000 mls @ 12 mls/hr IV TITRATE KEVYN; 2 MUNITS/MIN PRN Reason: Protocol Cefazolin Sodium/Dextrose 2 gm (/ Premix) 50 mls @ 100 mls/hr IV ONETIME ONE Stop: 04/05/17 17:55 Last Admin: 04/06/17 13:42 Dose: Not Given Dextrose/Lactated Ringer's (Dextrose 5%-Lactated Ringers) 1,000 mls @ 125 mls/ hr IV ASDIRECTED [facility] Stop: 04/06/17 04:49 Last Admin: 04/05/17 21:19 Dose: 125 mls/hr Ketorolac Tromethamine (Toradol) Confirm Administered Dose 30 mg .ROUTE .STK- MED ONE Stop: 04/05/17 18:57 Ketorolac Tromethamine (Toradol) 30 mg IVPUSH Q6H [facility] Stop: 04/06/17 13:46 Last Admin: 04/06/17 13:40 Dose: 30 mg Meperidine HCl (Demerol) Confirm Administered Dose 50 mg .ROUTE .STK-MED ONE Stop: 04/05/17 19:59 Metoclopramide HCl (Reglan) 10 mg IVPUSH ONETIME ONE Stop: 04/05/17 17:27 Last Admin: 04/05/17 18:25 Dose: 10 mg Morphine Sulfate (Duramorph Pf) Confirm Administered Dose 10 mg .ROUTE .STK-MED ONE Stop: 04/05/17 18:52 Nalbuphine HCl (Nubain) 10 mg IVPUSH Q2H PRN PRN Reason: Pain (moderate 4-6) Ondansetron HCl (Zofran) 4 mg IVPUSH Q4H PRN PRN Reason: Nausea/Vomiting Ondansetron HCl (Zofran) Confirm Administered Dose 4 mg .ROUTE .STK-MED ONE Stop: 04/05/17 19:56 Oxytocin (Pitocin) Confirm Administered Dose 10 unit .ROUTE .STK-MED ONE Stop: 04/05/17 18:53 Phenylephrine HCl (Panfilo-Synephrine) Confirm Administered Dose 10 mg .ROUTE .STK- MED ONE Stop: 04/05/17 19:56 Sodium Chloride (Saline Flush) 10 ml FLUSH ASDIRECTED PRN PRN Reason: Keep Vein Open *Q Meaningful Use (DIS) - VTE *Q VTE Criteria *Q: - Stroke *Q Stroke Criteria *Q: - AMI *Q AMI Criteria *Q:
[2017-04-07] MEDS: Sertraline 50 MG Tab PO SCH (09:39)
[2017-04-07 10:56] VITALS: BP 130/74
== END 2017-04-07 17:30 | disposition home or self-care (01) | DRG 540 ==
LOC: JD.OB 15:04 → OBSVTOIN 19:19 → JD.OB 19:19
PROVIDERS: ADMIT Obstetrics & Gynecology; ATTEND Obstetrics & Gynecology
PROC: 10D00Z1 Extraction of Products of Conception, Low, Open Approach (ICD-10-PCS; principal; 2017-04-05)
DX: O13.3 Gestational [pregnancy-induced] hypertension without significant proteinuria, third trimester (principal); O32.1XX0 Maternal care for breech presentation, not applicable or unspecified; O34.03 Maternal care for unspecified congenital malformation of uterus, third trimester; Q51.3 Bicornate uterus; O26.62 Liver and biliary tract disorders in childbirth; K83.1 Obstruction of bile duct; Z3A.37 37 weeks gestation of pregnancy; Z37.0 Single live birth; O75.89 Other specified complications of labor and delivery; Z88.0 Allergy status to penicillin; Z88.1 Allergy status to other antibiotic agents; Z87.891 Personal history of nicotine dependence; Z79.899 Other long term (current) drug therapy; L29.8 Other pruritus
CPT/HCPCS: 01961; 36415; 59409; 82565; 83789; 84450; 84460; 85027; 86850; 86900; 86901; 94762; A9270-GY; J0690; J1200; J1885; J2175; J2270; J2370; J2405; J2590; J2765; J7042; J7120